=== PATIENT | female | born 1975 | race Caucasian/White ===

== ENCOUNTER 2021-01-05 15:12 | Emergency (ER) | payer BC ==
[2021-01-05 15:59] VITALS: BP 168/93; PULSE 87; TEMP 98.3; BMI 39.1
[2021-01-05] MEDS ORDERED: FAMOTIDINE 20 MG TABLET PO ONE (16:44)
[2021-01-05] MEDS ORDERED: predniSONE 20 MG TABLET (UD) PO ONE (16:45)
[2021-01-05] MEDS ORDERED: predniSONE 10 MG TABLET (UD) ONE (17:01)
[2021-01-05] MEDS ORDERED: FAMOTIDINE 20 MG TABLET ONE (17:01)
[2021-01-05] MEDS ORDERED: predniSONE 20 MG TABLET (UD) ONE (17:02)
== END 2021-01-05 17:45 | disposition home or self-care (01) ==
LOC: JERFT 15:12
PROC: 3E0233Z Introduction of Anti-inflammatory into Muscle, Percutaneous Approach (ICD-10-PCS; principal; 2021-01-05)
DX: H57.89 Other specified disorders of eye and adnexa (principal); R21 Rash and other nonspecific skin eruption; T78.40XA Allergy, unspecified, initial encounter
CPT/HCPCS: 99284-25